=== PATIENT | female | born 1965 | race Caucasian/White ===

== ENCOUNTER → 2017-04-22 | Outpatient (CLI) | payer BC, OTHER ==
[2015-12-29 23:47] VITALS: BP 128/68
[~2017-04-22] MED LIST: AMOXICILLIN875 MG PO; BACTRIM 400 MG-1 TAB PO; IMITREX25 MG PO; KETOROLAC TROME10 MG PO; PERCOCET 325 MG1 TA2 PO; PERCOCET 325 MG1 TA5 PO; PROPRANOLOL ER80 MG PO; VALIUM 5MG T5 MG/TAB PO; VENLAFAXINE150 MG PO
== END ==
LOC: LAB 15:32
DX: R30.0 Dysuria (principal); N89.8 Other specified noninflammatory disorders of vagina
CPT/HCPCS: Q0111

== ENCOUNTER → 2017-08-24 | Outpatient (CLI) | payer BC, OTHER ==
[2015-12-29 23:47] VITALS: BP 128/68
[2017-08-24 15:50] LABS: ALBUMIN 4.5 g/dL (3.5-5.0); BUN/CREATININE RATIO 29.8 (6.0-26.0); CALCIUM 9.6 mg/dL (8.4-10.2); POTASSIUM 3.9 mmol/L (3.6-5.0); TOTAL BILIRUBIN 0.2 mg/dL (0.2-1.3); TOTAL PROTEIN 7.8 g/dL (6.3-8.2)
[2017-08-24 15:56] LABS: EOS # 0.3 (0.04-0.40); EOS % 2.6 % (1.0-5.0); HEMATOCRIT 46.8 % (37.0-47.0); HEMOGLOBIN 15.1 g/dL (12.5-16.0); LYMPH# 2.5 (1.50-4.00); MEAN CELL VOLUME 92 fl (78-100); MEAN CORPUSCULAR HEMOGLOBIN 30 pg (27-31); MEAN CORPUSCULAR HGB CONC 32 g/dL (33-37); MEAN PLATELET VOLUME 9.3 fl (7.4-10.4); MONO # 0.7 (0.20-0.80); NEU # 6.2 (1.40-6.50); PLATELET COUNT 308 K/mm3 (130-400); RED BLOOD COUNT 5.07 M/mm3 (4.10-5.30); RED CELL DISTRIBUTION WIDTH 13.6 % (11.5-14.5); WHITE BLOOD COUNT 9.7 K/mm3 (4.8-10.8)
[2017-08-24 19:30] LABS: ERYTHROCYTE SEDIMENTATION RATE 5 mm/hr (0-20)
[2017-08-24 23:03] LABS: C-REACTIVE PROTEIN XXX
[2017-08-25 23:12] LABS: ANA SCREEN with REFLEX Negative (Negative)
== END ==
LOC: LAB 15:17
PROVIDERS: Nurse Practitioner Family
DX: M25.50 Pain in unspecified joint (principal); R20.2 Paresthesia of skin; M54.5 Low back pain; R53.81 Other malaise; M79.1 Myalgia

== ENCOUNTER 2018-03-11 16:28 | Emergency (ER) | payer BC, OTHER ==
[~2018-03-11] VITALS: Ht 165.1 cm; Wt 88.2 kg
[2018-03-11] MEDS ORDERED: CITALOPRAM40 MG PO (16:36)
[2018-03-11] MEDS ORDERED: RITALIN 20M20 MG/TAB PO (16:36)
[2018-03-11] MEDS ORDERED: AMITRIPTYLINE H10 M2 PO (16:36)
[2018-03-11] MEDS ORDERED: DULOXETINE30 MG PO (16:37)
[2018-03-11 17:00] LABS: BASO # 0.1 (0.02-0.10); EOS # 0.2 (0.04-0.40); EOS % 2.1 % (1.0-5.0); HEMATOCRIT 44.8 % (37.0-47.0); LYMPH# 2.8 (1.50-4.00); MEAN CELL VOLUME 92 fl (78-100); MEAN CORPUSCULAR HEMOGLOBIN 31 pg (27-31); MEAN CORPUSCULAR HGB CONC 34 g/dL (33-37); MEAN PLATELET VOLUME 9.3 fl (7.4-10.4); MONO # 0.7 (0.20-0.80); NEU # 5.7 (1.40-6.50); PLATELET COUNT 287 K/mm3 (130-400); RED BLOOD COUNT 4.86 M/mm3 (4.10-5.30); RED CELL DISTRIBUTION WIDTH 13.2 % (11.5-14.5); WHITE BLOOD COUNT 9.5 K/mm3 (4.8-10.8)
[2018-03-11 17:13] LABS: ALBUMIN 4.4 g/dL (3.5-5.0); BUN/CREATININE RATIO 39.6 (6.0-26.0); CALCIUM 9.3 mg/dL (8.4-10.2); POTASSIUM 3.9 mmol/L (3.6-5.0); TOTAL BILIRUBIN 0.4 mg/dL (0.2-1.3); TOTAL PROTEIN 7.2 g/dL (6.3-8.2)
[2018-03-11] MEDS ORDERED: IMITREX100 M1 PO (18:32)
[2018-03-11 18:36] VITALS: BP 158/79
== END 2018-03-11 18:35 | disposition home or self-care (01) ==
LOC: ED 16:28
PROVIDERS: Nurse Practitioner
DX: R51 Headache (principal); I10 Essential (primary) hypertension; F17.200 Nicotine dependence, unspecified, uncomplicated; G43.909 Migraine, unspecified, not intractable, without status migrainosus; Z79.899 Other long term (current) drug therapy
CPT/HCPCS: J2270; J2550

== ENCOUNTER → 2018-03-30 | Outpatient (CLI) | payer BC, OTHER ==
[2018-03-11 18:36] VITALS: BP 158/79
[~2018-03-30] MED LIST changes: +AMITRIPTYLINE H10 M2 PO; +CITALOPRAM40 MG PO; +DULOXETINE30 MG PO; +IMITREX100 M1 PO; +RITALIN 20M20 MG/TAB PO
[2018-03-30 17:15] LABS: EOS # 0.3 (0.04-0.40); EOS % 3.3 % (1.0-5.0); HEMATOCRIT 43.5 % (37.0-47.0); HEMOGLOBIN 14.7 g/dL (12.5-16.0); MEAN CELL VOLUME 91 fl (78-100); MEAN CORPUSCULAR HEMOGLOBIN 31 pg (27-31); MEAN CORPUSCULAR HGB CONC 34 g/dL (33-37); MEAN PLATELET VOLUME 9.1 fl (7.4-10.4); MONO # 0.9 (0.20-0.80); NEU # 6.1 (1.40-6.50); PLATELET COUNT 329 K/mm3 (130-400); RED BLOOD COUNT 4.77 M/mm3 (4.10-5.30); RED CELL DISTRIBUTION WIDTH 13.1 % (11.5-14.5); WHITE BLOOD COUNT 10.3 K/mm3 (4.8-10.8)
[2018-03-30 18:12] LABS: ALBUMIN 4.7 g/dL (3.5-5.0); CALCIUM 10.2 mg/dL (8.4-10.2); POTASSIUM 4.1 mmol/L (3.6-5.0); TOTAL BILIRUBIN 0.5 mg/dL (0.2-1.3); TOTAL PROTEIN 7.4 g/dL (6.3-8.2)
[2018-03-30 18:30] LABS: ERYTHROCYTE SEDIMENTATION RATE 9 mm/hr (0-20)
[2018-03-31 13:44] LABS: C-REACTIVE PROTEIN XXX
[2018-04-01 00:29] LABS: ANA SCREEN with REFLEX Negative (Negative)
== END ==
LOC: LAB 16:53
PROVIDERS: Family Medicine
DX: Z01.419 Encounter for gynecological examination (general) (routine) without abnormal findings (principal); M79.1 Myalgia; E55.9 Vitamin D deficiency, unspecified; I10 Essential (primary) hypertension; R53.83 Other fatigue

== ENCOUNTER → 2018-04-29 | Outpatient (CLI) | payer BC, OTHER ==
[2018-04-29 16:39] LABS: URINE APPEARANCE CLEAR; URINE BILIRUBIN NEGATIVE (NEGATIVE); URINE BLOOD NEGATIVE (NEGATIVE); URINE COLOR YELLOW; URINE GLUCOSE NEGATIVE (NEGATIVE); URINE KETONE NEGATIVE (NEGATIVE); URINE LEUKOCYTE ESTERASE NEGATIVE (NEGATIVE); URINE NITRATE NEGATIVE (NEGATIVE); URINE PROTEIN(semi-quant) NEGATIVE (NEGATIVE); URINE UROBILINOGEN NORMAL (NORMAL); URINE WBC 0-1 /hpf (0-3)
== END ==
LOC: LAB 16:10
PROVIDERS: Family Medicine
DX: R30.0 Dysuria (principal)

== ENCOUNTER → 2018-05-24 | Outpatient (CLI) | payer BC, OTHER ==
[2018-05-24 14:28] LABS: URINE APPEARANCE CLEAR; URINE BILIRUBIN NEGATIVE (NEGATIVE); URINE BLOOD NEGATIVE (NEGATIVE); URINE COLOR YELLOW; URINE GLUCOSE NEGATIVE (NEGATIVE); URINE KETONE NEGATIVE (NEGATIVE); URINE LEUKOCYTE ESTERASE NEGATIVE (NEGATIVE); URINE MUCUS PRESENT (NOT PRESENT); URINE NITRATE NEGATIVE (NEGATIVE); URINE PROTEIN(semi-quant) NEGATIVE (NEGATIVE); URINE UROBILINOGEN NORMAL (NORMAL)
== END ==
LOC: LAB 13:23
PROVIDERS: Family Medicine
DX: R35.0 Frequency of micturition (principal)

== ENCOUNTER → 2018-08-25 | Outpatient (CLI) | payer BC, OTHER | LOC: RAD 14:06 | DX: M77.32 Calcaneal spur, left foot (principal); Z98.890 Other specified postprocedural states; Z96.7 Presence of other bone and tendon implants; M25.372 Other instability, left ankle ==

== ENCOUNTER → 2018-08-29 | Outpatient (CLI) | payer BC, OTHER | LOC: RAD 14:31 | DX: M47.816 Spondylosis without myelopathy or radiculopathy, lumbar region (principal); M51.37 Other intervertebral disc degeneration, lumbosacral region; M51.27 Other intervertebral disc displacement, lumbosacral region; R10.9 Unspecified abdominal pain ==

== ENCOUNTER → 2018-11-29 | Outpatient (CLI) | payer BC, OTHER ==
[2018-11-29 09:45] LABS: EOS # 0.1 (0.04-0.40); EOS % 1.5 % (1.0-5.0); HEMATOCRIT 44.4 % (37.0-47.0); HEMOGLOBIN 14.8 g/dL (12.5-16.0); MEAN CELL VOLUME 92 fl (78-100); MEAN CORPUSCULAR HEMOGLOBIN 31 pg (27-31); MEAN CORPUSCULAR HGB CONC 33 g/dL (33-37); MEAN PLATELET VOLUME 8.8 fl (7.4-10.4); MONO # 0.5 (0.20-0.80); NEU # 6.7 (1.40-6.50); PLATELET COUNT 364 K/mm3 (130-400); RED BLOOD COUNT 4.85 M/mm3 (4.10-5.30); RED CELL DISTRIBUTION WIDTH 12.7 % (11.5-14.5); WHITE BLOOD COUNT 9.4 K/mm3 (4.8-10.8)
[2018-11-29 10:07] LABS: ALBUMIN 4.7 g/dL (3.5-5.0); CALCIUM 9.8 mg/dL (8.4-10.2); TOTAL BILIRUBIN 0.4 mg/dL (0.2-1.3)
[2018-11-29 10:34] LABS: URINE APPEARANCE HAZY; URINE BILIRUBIN NEGATIVE (NEGATIVE); URINE BLOOD NEGATIVE (NEGATIVE); URINE COLOR YELLOW; URINE GLUCOSE NEGATIVE (NEGATIVE); URINE KETONE NEGATIVE (NEGATIVE); URINE LEUKOCYTE ESTERASE NEGATIVE (NEGATIVE); URINE NITRATE POSITIVE (NEGATIVE); URINE PROTEIN(semi-quant) NEGATIVE (NEGATIVE); URINE UROBILINOGEN NORMAL (NORMAL); URINE WBC 0-1 /hpf (0-3)
== END ==
LOC: LAB 09:19
PROVIDERS: Family Medicine
DX: N39.0 Urinary tract infection, site not specified (principal); E53.9 Vitamin B deficiency, unspecified; R53.83 Other fatigue

== ENCOUNTER → 2018-12-07 | Outpatient (CLI) | payer BC, OTHER ==
[2018-12-07 18:12] LABS: URINE APPEARANCE HAZY; URINE COLOR YELLOW; URINE PROTEIN(semi-quant) TRACE mg/dL (NEGATIVE)
[2018-12-07 18:13] LABS: URINE BILIRUBIN NEGATIVE (NEGATIVE); URINE BLOOD NEGATIVE (NEGATIVE); URINE GLUCOSE NEGATIVE (NEGATIVE); URINE KETONE NEGATIVE (NEGATIVE); URINE LEUKOCYTE ESTERASE NEGATIVE (NEGATIVE); URINE NITRATE NEGATIVE (NEGATIVE); URINE UROBILINOGEN NORMAL (NORMAL)
== END ==
LOC: LAB 16:20
PROVIDERS: Nurse Practitioner
DX: R30.0 Dysuria (principal)

== ENCOUNTER → 2018-12-08 | Outpatient (CLI) | payer BC, OTHER | LOC: LAB 16:39 | DX: R30.0 Dysuria (principal) ==

== ENCOUNTER → 2019-01-09 | Outpatient (CLI) | payer BC, OTHER | LOC: LAB 09:43 | DX: G89.29 Other chronic pain (principal) ==

== ENCOUNTER → 2019-01-30 | Outpatient (CLI) | payer BC, OTHER | LOC: LAB 15:13 | DX: N89.8 Other specified noninflammatory disorders of vagina (principal) ==

== ENCOUNTER → 2019-07-11 | Outpatient (CLI) | payer BC, OTHER ==
[2019-07-11 16:27] LABS: ALBUMIN 4.7 g/dL (3.5-5.0); BASO # 0.1 (0.02-0.10); EOS # 0.4 (0.04-0.40); EOS % 3.5 % (1.0-5.0); HEMOGLOBIN 14.2 g/dL (12.5-16.0); LYMPH# 3.6 (1.50-4.00); MEAN CELL VOLUME 91 fl (78-100); MEAN CORPUSCULAR HEMOGLOBIN 30 pg (27-31); MEAN CORPUSCULAR HGB CONC 33 g/dL (33-37); MEAN PLATELET VOLUME 8.9 fl (7.4-10.4); MONO # 0.9 (0.20-0.80); NEU # 6.3 (1.40-6.50); PLATELET COUNT 343 K/mm3 (130-400); RED BLOOD COUNT 4.75 M/mm3 (4.10-5.30); RED CELL DISTRIBUTION WIDTH 13.1 % (11.5-14.5); WHITE BLOOD COUNT 11.2 K/mm3 (4.8-10.8)
[2019-07-11 16:28] LABS: CALCIUM 10.4 mg/dL (8.3-10.5)
[2019-07-11 16:30] LABS: TOTAL PROTEIN 7.7 g/dL (6.4-8.3)
[2019-07-11 16:31] LABS: TOTAL BILIRUBIN 0.2 mg/dL (0.2-1.2)
[2019-07-11 17:32] LABS: ERYTHROCYTE SEDIMENTATION RATE 13 mm/hr (0-30)
== END ==
LOC: LAB 16:05
PROVIDERS: Family Medicine
DX: F41.9 Anxiety disorder, unspecified (principal); R76.8 Other specified abnormal immunological findings in serum

== ENCOUNTER → 2019-07-17 | Outpatient (CLI) | payer BC, OTHER | LOC: RAD 08:09 | DX: K44.9 Diaphragmatic hernia without obstruction or gangrene (principal) ==

== ENCOUNTER → 2019-09-28 | Outpatient (CLI) | payer BC, OTHER ==
[2019-09-28 15:32] LABS: EOS # 0.3 (0.04-0.40); EOS % 3.7 % (1.0-5.0); HEMATOCRIT 42.1 % (37.0-47.0); HEMOGLOBIN 13.7 g/dL (12.5-16.0); LYMPH# 2.7 (1.50-4.00); MEAN CELL VOLUME 92 fl (78-100); MEAN CORPUSCULAR HEMOGLOBIN 30 pg (27-31); MEAN CORPUSCULAR HGB CONC 33 g/dL (33-37); MEAN PLATELET VOLUME 8.9 fl (7.4-10.4); MONO # 0.6 (0.20-0.80); NEU # 4.8 (1.40-6.50); PLATELET COUNT 316 K/mm3 (130-400); RED BLOOD COUNT 4.59 M/mm3 (4.10-5.30); RED CELL DISTRIBUTION WIDTH 13.2 % (11.5-14.5); WHITE BLOOD COUNT 8.5 K/mm3 (4.8-10.8)
== END ==
LOC: LAB 15:16
PROVIDERS: Family Medicine
DX: J32.9 Chronic sinusitis, unspecified (principal); M79.7 Fibromyalgia; L29.9 Pruritus, unspecified; R21 Rash and other nonspecific skin eruption; R20.0 Anesthesia of skin

== ENCOUNTER → 2019-11-29 | Outpatient (CLI) | payer BC, OTHER | LOC: LAB 09:25 | DX: M79.10 Myalgia, unspecified site (principal); R43.2 Parageusia; R05 Cough; R50.9 Fever, unspecified; R06.02 Shortness of breath; R53.83 Other fatigue ==

== ENCOUNTER → 2020-07-01 | Outpatient (CLI) | payer BC, OTHER | LOC: LAB 15:30 | DX: J02.9 Acute pharyngitis, unspecified (principal); Z20.828 Contact with and (suspected) exposure to other viral communicable diseases ==

== ENCOUNTER → 2020-07-30 | Outpatient (CLI) | payer BC, OTHER ==
[2020-07-30 09:39] LABS: EOS # 0.3 (0.04-0.40); EOS % 3.4 % (1.0-5.0); HEMATOCRIT 46.5 % (37.0-47.0); HEMOGLOBIN 15.2 g/dL (12.5-16.0); LYMPH# 2.1 (1.50-4.00); MEAN CELL VOLUME 93 fl (78-100); MEAN CORPUSCULAR HEMOGLOBIN 30 pg (27-31); MEAN CORPUSCULAR HGB CONC 33 g/dL (33-37); MEAN PLATELET VOLUME 8.9 fl (7.4-10.4); MONO # 0.7 (0.20-0.80); NEU # 5.9 (1.40-6.50); PLATELET COUNT 323 K/mm3 (130-400); RED BLOOD COUNT 5.02 M/mm3 (4.10-5.30); RED CELL DISTRIBUTION WIDTH 13.8 % (11.5-14.5); WHITE BLOOD COUNT 9.1 K/mm3 (4.8-10.8)
[2020-07-30 09:57] LABS: POTASSIUM 4.6 mmol/L (3.5-5.1)
[2020-07-30 09:58] LABS: ALBUMIN 4.3 g/dL (3.5-5.0)
[2020-07-30 09:59] LABS: CALCIUM 9.3 mg/dL (8.3-10.5)
[2020-07-30 10:00] LABS: TOTAL PROTEIN 7.1 g/dL (6.4-8.3)
[2020-07-30 10:02] LABS: TOTAL BILIRUBIN 0.4 mg/dL (0.2-1.2)
== END ==
LOC: LAB 09:20
PROVIDERS: Family Medicine
DX: Z00.00 Encounter for general adult medical examination without abnormal findings (principal); E78.5 Hyperlipidemia, unspecified; E55.9 Vitamin D deficiency, unspecified

== ENCOUNTER → 2020-09-10 | Outpatient (CLI) | payer BC, OTHER | LOC: LAB 13:30 | DX: R10.9 Unspecified abdominal pain (principal) ==

== ENCOUNTER → 2020-11-22 | Outpatient (CLI) | payer BC, OTHER ==
[~2020-11-22] MED LIST changes: +DESYREL50 MG PO; +LEVOFLOXACIN750 MG PO
[2020-11-22 13:33] LABS: URINE APPEARANCE CLEAR; URINE BILIRUBIN NEGATIVE (NEGATIVE); URINE BLOOD NEGATIVE (NEGATIVE); URINE COLOR YELLOW; URINE GLUCOSE NEGATIVE (NEGATIVE); URINE KETONE NEGATIVE (NEGATIVE); URINE LEUKOCYTE ESTERASE TRACE (NEGATIVE); URINE NITRATE NEGATIVE (NEGATIVE); URINE PROTEIN(semi-quant) TRACE mg/dL (NEGATIVE); URINE UROBILINOGEN NORMAL (NORMAL)
== END ==
LOC: LAB 12:06
PROVIDERS: Nurse Practitioner
DX: R30.9 Painful micturition, unspecified (principal)

== ENCOUNTER → 2020-11-25 | Outpatient (CLI) | payer BC, OTHER | LOC: RAD 13:57 | DX: R59.0 Localized enlarged lymph nodes (principal) ==

== ENCOUNTER 2021-01-05 10:24 | Emergency (ER) | payer BC, OTHER ==
[~2021-01-05 10:24] MED LIST changes: -DESYREL50 MG PO; -LEVOFLOXACIN750 MG PO
[2021-01-05] MEDS ORDERED: DESYREL50 MG PO (12:28)
[2021-01-05] MEDS ORDERED: LEVOFLOXACIN750 MG PO (12:30)
[2021-01-05 12:56] LABS: BASO # 0.02 (0.02-0.10); EOS # 0.52 (0.04-0.40); EOS % 5.9 % (1.0-5.0); HEMATOCRIT 43.2 % (37.0-47.0); HEMOGLOBIN 14.6 g/dL (12.5-16.0); LYMPH# 0.69 (1.50-4.00); MEAN CELL VOLUME 90 fl (78-100); MEAN CORPUSCULAR HEMOGLOBIN 31 pg (27-31); MEAN CORPUSCULAR HGB CONC 34 g/dL (33-37); MEAN PLATELET VOLUME 8.8 fl (7.4-10.4); MONO # 0.33 (0.20-0.80); NEU # 7.19 (1.40-6.50); PLATELET COUNT 271 K/mm3 (130-400); RED BLOOD COUNT 4.79 M/mm3 (4.10-5.30); RED CELL DISTRIBUTION WIDTH 12.8 % (11.5-14.5); WHITE BLOOD COUNT 8.8 K/mm3 (4.8-10.8)
[2021-01-05 13:11] LABS: ALBUMIN 3.9 g/dL (3.5-5.0); POTASSIUM 3.5 mmol/L (3.5-5.1)
[2021-01-05 13:12] LABS: CALCIUM 9.2 mg/dL (8.3-10.5)
[2021-01-05 13:15] LABS: TOTAL BILIRUBIN 0.3 mg/dL (0.2-1.2)
[2021-01-05 14:12] LABS: URINE APPEARANCE HAZY; URINE COLOR YELLOW; URINE GLUCOSE NEGATIVE (NEGATIVE); URINE KETONE 2+ (NEGATIVE); URINE PROTEIN(semi-quant) TRACE mg/dL (NEGATIVE)
[2021-01-05 14:13] LABS: URINE BILIRUBIN 1+ (NEGATIVE); URINE BLOOD NEGATIVE (NEGATIVE); URINE LEUKOCYTE ESTERASE TRACE (NEGATIVE); URINE MUCUS PRESENT (NOT PRESENT); URINE NITRATE NEGATIVE (NEGATIVE); URINE UROBILINOGEN NORMAL (NORMAL)
[2021-01-05 15:05] VITALS: BP 116/70
== END 2021-01-05 15:00 | disposition home or self-care (01) ==
LOC: ED 10:24
PROVIDERS: Family Medicine
DX: R30.0 Dysuria (principal); M54.9 Dorsalgia, unspecified; G43.909 Migraine, unspecified, not intractable, without status migrainosus; M79.7 Fibromyalgia; F17.210 Nicotine dependence, cigarettes, uncomplicated

== ENCOUNTER → 2023-04-14 | Outpatient (CLI) | payer OTHER ==
[~2023-04-14] MED LIST changes: +DESYREL50 MG PO; +LEVOFLOXACIN750 MG PO
[2023-04-14 08:11] LABS: BASO # 0.05 K/mm3 (0.02-0.10); EOS % 3.6 % (1.0-5.0); HEMATOCRIT 45.6 % (37.0-47.0); HEMOGLOBIN 15.2 g/dL (12.5-16.0); LYMPH# 2.51 K/mm3 (1.50-4.00); MEAN CELL VOLUME 93 fl (78-100); MEAN CORPUSCULAR HEMOGLOBIN 31 pg (27-31); MEAN CORPUSCULAR HGB CONC 33 g/dL (33-37); MEAN PLATELET VOLUME 9.1 fl (7.4-10.4); MONO # 0.72 K/mm3 (0.20-0.80); PLATELET COUNT 350 K/mm3 (130-400); RED BLOOD COUNT 4.88 M/mm3 (4.10-5.30); WHITE BLOOD COUNT 8.3 K/mm3 (4.8-10.8)
[2023-04-14 08:17] LABS: ALBUMIN 4.3 g/dL (3.5-5.0)
[2023-04-14 08:18] LABS: CALCIUM 10.5 mg/dL (8.3-10.5)
[2023-04-14 08:19] LABS: TOTAL PROTEIN 7.5 g/dL (6.4-8.3)
[2023-04-14 08:21] LABS: TOTAL BILIRUBIN 0.5 mg/dL (0.2-1.2)
[2023-04-14 08:27] LABS: MAGNESIUM 2.04 mg/dL (1.60-2.60)
== END ==
LOC: LAB 07:50
PROVIDERS: Nurse Practitioner
DX: Z00.00 Encounter for general adult medical examination without abnormal findings (principal); G43.909 Migraine, unspecified, not intractable, without status migrainosus

== ENCOUNTER → 2024-11-17 | Outpatient (CLI) | payer BC, OTHER ==
[2024-11-17 08:38] LABS: ALBUMIN 4.1 g/dL (3.5-5.0)
[2024-11-17 08:39] LABS: CALCIUM 9.6 mg/dL (8.3-10.5)
[2024-11-17 08:40] LABS: BASO # 0.03 K/mm3 (0.02-0.10); EOS # 0.18 K/mm3 (0.04-0.40); EOS % 3.5 % (1.0-5.0); HEMATOCRIT 39.7 % (37.0-47.0); LYMPH# 1.94 K/mm3 (1.50-4.00); MEAN CELL VOLUME 93 fl (78-100); MEAN CORPUSCULAR HEMOGLOBIN 30 pg (27-31); MEAN CORPUSCULAR HGB CONC 33 g/dL (33-37); MEAN PLATELET VOLUME 9.5 fl (7.4-10.4); MONO # 0.42 K/mm3 (0.20-0.80); NEU # 2.56 K/mm3 (1.40-6.50); PLATELET COUNT 284 K/mm3 (130-400); RED BLOOD COUNT 4.28 M/mm3 (4.10-5.30); RED CELL DISTRIBUTION WIDTH 12.1 % (11.5-14.5); TOTAL PROTEIN 7.3 g/dL (6.4-8.3); WHITE BLOOD COUNT 5.1 K/mm3 (4.8-10.8)
[2024-11-17 08:42] LABS: TOTAL BILIRUBIN 0.2 mg/dL (0.2-1.2)
== END ==
LOC: LAB 07:08
PROVIDERS: Nurse Practitioner
DX: Z00.00 Encounter for general adult medical examination without abnormal findings (principal); Z13.220 Encounter for screening for lipoid disorders